=== PATIENT | female | born 1970 | race Caucasian/White ===

== ENCOUNTER → 2017-03-27 | Outpatient (CLI) | payer OTHER ==
--- NOTE | 2017-03-27 14:08 | Diagnostic Imaging Report ---
INDICATION: Right lower rib pain for several months with no known injury 3 views of the right ribs show no fracture or other acute bony abnormality. There is no effusion or pneumothorax. IMPRESSION: Normal right ribs. Dictated by: Dictated on workstation # [id number]
== END ==
LOC: RAD 13:47
PROVIDERS: ATTEND Family Medicine
DX: R07.81 Pleurodynia (principal)
CPT/HCPCS: 71100